=== PATIENT | female | born 2000 | race Hispanic/Latino ===

== ENCOUNTER 2025-01-19 19:53 | Day surgery (SDC) | payer SELFPAY ==
[2025-01-19 20:13] VITALS: BMI 37.7
[2025-01-19] MEDS ORDERED: hydrALAZINE 20 MG/ML VIAL SLOW IVP PRN (20:37)
[2025-01-19] MEDS: Acetaminophen 500 MG TAB PO SCH (20:55)
[2025-01-19 21:08] LABS: Glucose, Urine (Dipstick) Normal (Negative); Protein, Urine (Dipstick) 15 mg/dl (Neg-Trace); Specific Gravity, Urine 1.010 (1.005-1.030)
[2025-01-19 21:41] LABS: Bacteria/HPF None Seen HPF (None Seen); CAUTI Indications for Culture Pregnancy; Leukocyte 500 (Negative); RBC/HPF None Seen HPF (0-3); Urine Culture Reflex Yes Yes
== END 2025-01-19 22:47 | disposition home or self-care (01) ==
LOC: CSHLD/OP 19:53
PROVIDERS: ATTEND Obstetrics & Gynecology
DX: O99.891 Other specified diseases and conditions complicating pregnancy (principal); M54.50 Low back pain, unspecified; Z3A.31 31 weeks gestation of pregnancy; Z79.899 Other long term (current) drug therapy; W11.XXXA Fall on and from ladder, initial encounter
CPT/HCPCS: 81001; 87077; 87086; 99284

== ENCOUNTER 2025-03-07 22:03 | Day surgery (SDC) | payer OTHER ==
[2025-03-07] MEDS ORDERED: hydrALAZINE 20 MG/ML VIAL SLOW IVP PRN (22:15)
[2025-03-07 22:24] VITALS: BMI 39.9
[2025-03-07 23:26] LABS: Glucose, Urine (Dipstick) Normal (Negative); Leukocyte 100 (Negative); Protein, Urine (Dipstick) Negative (Neg-Trace); Specific Gravity, Urine 1.010 (1.005-1.030)
[2025-03-07 23:38] LABS: Bacteria/HPF Rare-Few HPF (None Seen); CAUTI Indications for Culture Pregnancy; RBC/HPF 0-3 HPF (0-3); WBC/HPF 0-3 HPF (0-3)
[2025-03-07 23:45] LABS: Urine Culture Reflex Yes Yes
== END 2025-03-07 23:54 | disposition home or self-care (01) ==
LOC: CSHLD/OP 22:03
PROVIDERS: ATTEND Student in an Organized Health Care Education/Training Program
DX: O36.8130 Decreased fetal movements, third trimester, not applicable or unspecified (principal); O99.891 Other specified diseases and conditions complicating pregnancy; M54.50 Low back pain, unspecified; Z3A.38 38 weeks gestation of pregnancy
CPT/HCPCS: 76819; 81001; 87086; 99283

== ENCOUNTER 2025-03-19 17:01 | Inpatient (IN) | payer MEDICAID, OTHER, SELFPAY ==
[~2025-03-19 17:01] MED LIST: Bupivacaine/Epinephrine 0.25% 30 ML VIAL ONE
[2025-03-19] MEDS ORDERED: Carboprost 250 MCG/ML AMP IM PRN (17:05)
[2025-03-19] MEDS ORDERED: Acetaminophen 500 MG TAB PO PRN (17:05)
[2025-03-19] MEDS ORDERED: Tranexamic Acid 1,000 MG/10 ML VIAL IVP PRN (17:05)
[2025-03-19] MEDS ORDERED: Ondansetron PF 4 MG/2 ML Vial IVP PRN ×2 (17:05→19:19)
[2025-03-19] MEDS ORDERED: Lidocaine 1% (PF) 30 ML VIAL SC PRN (17:05)
[2025-03-19] MEDS ORDERED: Methylergonovine 0.2 MG/ML VIAL IM PRN (17:05)
[2025-03-19] MEDS ORDERED: hydrALAZINE 20 MG/ML VIAL SLOW IVP PRN (17:05)
[2025-03-19] MEDS ORDERED: Diphenoxylate HCl/Atropine Tablet PO PRN ×2 (17:05)
[2025-03-19] MEDS ORDERED: Oxytocin 30 units/NS 500 ML 500 ML IV SCH ×2 (17:15)
[2025-03-19 17:51] LABS: Hematocrit 33.7 % (34.9-44.5); Hemoglobin 11.4 g/dL (12.0-15.5); Mean Corpuscular Hemoglobin 28.6 pg (27.0-33.0); Mean Corpuscular Volume 84.5 fL (81.6-98.3); Platelet Count 355 10x3/uL (150-450); Red Blood Cell (RBC) Count 3.99 10x6/uL (3.90-5.03); White Blood Cell (WBC) Count 19.33 10x3/uL (3.5-10.5)
[2025-03-19] MEDS: Penicillin G Potassium 5 MILL.UNITS in Sodium Chloride 0.9% 100 ML IVPB SCH (18:02)
[2025-03-19] MEDS: fentaNYL/Ropivacaine Epidural 100 ML ONE (19:10)
[2025-03-19 19:15] LABS: Syphilis Antibody Index 0.06 S/CO (<1.00 Non-Reactive)
[2025-03-19 19:16] LABS: Hep B Surf Ag - L&D Non-Reactive S/CO (NonReactive)
[2025-03-19] MEDS ORDERED: Acetaminophen 325 MG TAB PO PRN (19:19)
[2025-03-19] MEDS ORDERED: diphenhydrAMINE 50 MG/ML VIAL IVP PRN (19:19)
[2025-03-19 19:29] VITALS: BMI 32.0
[2025-03-19] MEDS ORDERED: Communication Order-Pharmacy FS SCH (19:30)
[2025-03-19] MEDS ORDERED: fentaNYL 2 mcg/Ropivacaine 0.2% Epidural 100 ML CADD EPIDURAL SCH (19:30)
[2025-03-19] MEDS: Penicillin G 2.5 MILL.units 2.5 MILL.UNITS in Premix 1 BAG IVPB SCH (21:30)
[2025-03-20] MEDS ORDERED: Ondansetron PF 4 MG/2 ML Vial IVP PRN (01:49)
[2025-03-20] MEDS ORDERED: Milk Of Magnesia 30 ML UDCUP PO PRN (01:49)
[2025-03-20] MEDS ORDERED: Lanolin Ointment 7 GM TUBE TOP PRN (01:49)
[2025-03-20] MEDS ORDERED: Benzocaine-Menthol 82.5 ML CAN TOP PRN (01:49)
[2025-03-20] MEDS ORDERED: Boostrix 0.5 ML (Tdap) VIAL (>/=7 yrs of age) IM ONE (01:49)
[2025-03-20] MEDS ORDERED: diphenhydrAMINE 25 MG CAP PO PRN (01:49)
[2025-03-20] MEDS ORDERED: Bisacodyl 10 MG SUPP PR PRN (01:49)
[2025-03-20] MEDS: Ibuprofen 800 MG TAB PO PRN (01:49)
[2025-03-20] MEDS ORDERED: Methylergonovine 0.2 MG/ML VIAL IM PRN (01:49)
[2025-03-20] MEDS ORDERED: hydrALAZINE 20 MG/ML VIAL SLOW IVP PRN (01:49)
[2025-03-20] MEDS ORDERED: Oxytocin 30 units/NS 500 ML 500 ML IV SCH (02:00)
[2025-03-20] MEDS: Oxytocin 30 units/NS 500 ML 500 ML ONE (02:51)
[2025-03-20] MEDS: Erythromycin Base 0.5% Oint 1 GM TUBE ONE (07:14)
[2025-03-20] MEDS: Hepatitis B Vaccine 10 MCG/0.5 ML SYR ONE (07:14)
[2025-03-20] MEDS: Ferrous Sulfate 325 MG TAB PO SCH (09:00)
[2025-03-20] MEDS: Ibuprofen 800 MG TAB PO SCH (09:01)
[2025-03-21 09:12] VITALS: BP 127/72; TEMP 98.3
== END 2025-03-21 15:45 | disposition home or self-care (01) | DRG 807 ==
LOC: CSHLD 17:01 → CSHPP 03-20 04:00
PROVIDERS: ADMIT Family Medicine; ATTEND Family Medicine
PROC: 10E0XZZ Delivery of Products of Conception, External Approach (ICD-10-PCS; principal; 2025-03-20)
PROC: 0HQ9XZZ Repair Perineum Skin, External Approach (ICD-10-PCS; 2025-03-20)
PROC: 0UQMXZZ Repair Vulva, External Approach (ICD-10-PCS; 2025-03-20)
DX: O48.0 Post-term pregnancy (principal); Z37.0 Single live birth; O99.214 Obesity complicating childbirth; E66.9 Obesity, unspecified; Z3A.40 40 weeks gestation of pregnancy; O70.0 First degree perineal laceration during delivery; O71.82 Other specified trauma to perineum and vulva; O32.6XX0 Maternal care for compound presentation, not applicable or unspecified; O99.824 Streptococcus B carrier state complicating childbirth
CPT/HCPCS: 36415; 51702; 85027; 86780; 86850; 86900; 86901; 87340; J0595; J2540; J2590; J7120